=== PATIENT | female | born 1975 | race Caucasian/White ===

== ENCOUNTER 2023-06-06 18:00 | Outpatient (CLI) | payer BC | END 2023-06-06 18:01 | disposition home or self-care (01) | LOC: SLEEPLAB 18:00 | PROVIDERS: ATTEND Family Medicine | DX: G47.33 Obstructive sleep apnea (adult) (pediatric) (principal); E66.9 Obesity, unspecified; I10 Essential (primary) hypertension; R53.83 Other fatigue | CPT/HCPCS: 95800 ==

== ENCOUNTER → 2023-08-12 | Day surgery (SDC) | payer BC | LOC: BICULT 12:28 | PROVIDERS: ATTEND Family Medicine | PROC: 0HB5XZX Excision of Chest Skin, External Approach, Diagnostic (ICD-10-PCS; principal; 2023-08-12) | DX: N63.15 Unspecified lump in the right breast, overlapping quadrants (principal); N60.81 Other benign mammary dysplasias of right breast | CPT/HCPCS: 19083; 88305 ==

== ENCOUNTER 2023-09-19 10:06 | Outpatient (CLI) | payer BC ==
[2023-09-19 12:41] LABS: #Basophils 0.1 10x3/uL (0.0-0.2); #Eosinphils 0.1 10x3/uL (0.0-0.5); #Monocytes 0.6 10x3/uL (0.0-1.1); #Neutrophils 5.6 10x3/uL (1.5-8.4); %Basophils 0.9 % (0.0-2.0); %Monocytes 6.6 % (0.0-10.0); %Neutrophils 57.1 % (40.0-75.0); Hematocrit 43.5 % (34.9-44.5); Hemoglobin 14.5 g/dL (12.0-15.5); Mean Corpuscular HGB CONC 33.3 g/dL (32.0-36.0); Mean Corpuscular Hemoglobin 29.6 pg (27.0-33.0); Mean Corpuscular Volume 88.8 fl (81.6-98.3); Mean Platelet Volume 8.9 fl (7.4-10.4); Platelet Count 517 10x3/uL (150-450); RBC Distribution Width 13.2 % (11.5-14.5); White Blood Cell (WBC) Count 9.7 10x3/uL (3.5-10.5)
[2023-09-19 13:09] LABS: Anion Gap 16 mmol/L (10-20); BHCG - Serum Negative (NEGATIVE); BUN (Urea Nitrogen) 10 mg/dL (7.0-18.7); Calc. Creatinine Clearance 0 mL/min (70-130); Carbon Dioxide 25 mmol/L (22-29); Chloride 105 mmol/L (98-107); Estimated GFR 100; Glucose 90 mg/dL (70-105); Potassium 4.1 mmol/L (3.5-5.1); Pregs Control Background? CLEAR/WHITE (CLR/WHITE); Pregs Control Bar Appear? YES (CONTROL BAR); Sodium 142 mmol/L (136-145)
== END 2023-09-19 10:07 | disposition home or self-care (01) ==
LOC: LABBT 10:06
PROVIDERS: ATTEND Surgery
DX: Z01.818 Encounter for other preprocedural examination (principal); N63.10 Unspecified lump in the right breast, unspecified quadrant
CPT/HCPCS: 80048; 84703; 85025; 93005; 93010

== ENCOUNTER 2023-09-22 06:37 | Day surgery (SDC) | payer BC ==
[2023-09-19 11:11] VITALS: BMI 38.9
[2023-09-22] MEDS ORDERED: Lidocaine 1% PF 5 ML VIAL ONE ×2 (10:33→12:04)
[2023-09-22] MEDS ORDERED: PROPOFOL 0 ML ONE (10:33)
[2023-09-22] MEDS ORDERED: Midazolam HCl 2 mg/2 ml Vial ONE (11:28)
[2023-09-22] MEDS ORDERED: Scopolamine 1 mg/72 hour Patch ONE (11:28)
[2023-09-22] MEDS ORDERED: EPINEPHrine 1 MG/ML VIAL ONE (11:36)
[2023-09-22] MEDS ORDERED: Bupivacaine 0.25% HCL 30 ML VIAL ONE (11:37)
[2023-09-22] MEDS ORDERED: fentaNYL PF 100 MCG/2 ML SYRINGE ONE ×2 (11:38→12:18)
[2023-09-22] MEDS ORDERED: PROPOFOL 20 ML ONE ×2 (11:38→12:17)
[2023-09-22] MEDS ORDERED: Sodium Chloride 0.9% 100 ML ONE (11:56)
[2023-09-22] MEDS ORDERED: CEFAZOLIN 2 GM VIAL ONE (11:56)
[2023-09-22] MEDS ORDERED: Ketorolac Tromethamine 30 MG (1 mL) VIAL ONE ×2 (12:04→12:27)
[2023-09-22] MEDS ORDERED: PROPOFOL 200 MG/20 ML VIAL ONE (12:04)
[2023-09-22] MEDS ORDERED: Dexamethasone 20 MG/5 ML VIAL ONE (12:04)
[2023-09-22] MEDS ORDERED: Ondansetron PF 4 MG/2 ML Vial ONE ×2 (12:04→12:27)
[2023-09-22] MEDS ORDERED: Dexamethasone 4 mg/ml Vial ONE (12:15)
== END 2023-09-22 14:20 | disposition home or self-care (01) ==
LOC: SDC 06:37
PROVIDERS: ATTEND Surgery
PROC: 0HBT0ZZ Excision of Right Breast, Open Approach (ICD-10-PCS; principal; 2023-09-22)
DX: N63.10 Unspecified lump in the right breast, unspecified quadrant (principal); G43.109 Migraine with aura, not intractable, without status migrainosus; F41.9 Anxiety disorder, unspecified; F32.A Depression, unspecified; I10 Essential (primary) hypertension; M54.9 Dorsalgia, unspecified; Z98.890 Other specified postprocedural states; Z88.8 Allergy status to other drugs, medicaments and biological substances; Z87.19 Personal history of other diseases of the digestive system; Z91.011 Allergy to milk products; Z91.048 Other nonmedicinal substance allergy status
CPT/HCPCS: 19281; 76098; 88307; 88341; 88342; J0171; J0665; J1100; J1885; J2250; J2405; J2704; J3490